=== PATIENT | female | born 1995 | race African-American/Black ===

== ENCOUNTER 2016-07-20 08:21 | Emergency (ER) | payer BC ==
[2016-07-20 08:34] VITALS: BP 144/74; PULSE 91; TEMP 98.1; BMI 43.5
[2016-07-20] MEDS ORDERED: ALBUTEROL SO4 2.5/IPRATROPIUM 0.5 INH SOL 3 ML VIAL.NEB. NEB ONE ×2 (09:11→09:12)
--- NOTE | 2016-07-20 09:15 | PDOC ---
History of Present Illness - General Chief Complaint: Cold Symptoms Stated Complaint: COLD SYMPTONS, LIGHTHEADED Time Seen by Provider: 07/20/16 08:59 History Source: Patient Past History - Past Medical History Allergies/Adverse Reactions: Allergies Allergy/AdvReac Type Severity Reaction Status Date / Time No Known Allergies Allergy Verified 07/20/16 08:31 Home Medications: Ambulatory Orders NK [No Known Home Medication] 07/20/16 Other medical history: denies - Immunization History Immunization Up to Date: Yes (no flu) - Psycho/Social/Smoking Cessation Hx Anxiety: No Suicidal Ideation: No Smoking Status: No Smoking History: Never smoked Have you smoked in the past 12 months: No Number of Cigarettes Smoked Daily: 0 Information on smoking cessation initiated: No Hx Alcohol Use: No Drug/Substance Use Hx: No *Physical Exam - Vital Signs Last Vital Signs Temp Pulse Resp BP Pulse Ox 98.1 F 91 H 20 144/74 97 07/20/16 08:32 07/20/16 08:32 07/20/16 08:32 07/20/16 08:32 07/20/16 08:32 Medical Decision Making - Medical Decision Making 07/20/16 10:26 better post 2 albuterol, will start pump at home; work note given *DC/Admit/Observation/Transfer Diagnosis at time of Disposition: Bronchitis with bronchospasm - Discharge Dispostion Disposition: HOME Condition at time of disposition: Stable Admit: No - Patient Instructions Additional Instructions: use albuterol x 3 days; see local MD 2-3 days if no better; rest at home - Post Discharge Activity Work/School Note: Back to Work
[2016-07-20] MEDS ORDERED: ALBUTEROL SO4 0.083% IH SOL 2.5 MG/3 ML VIAL.NEB. NEB ONE ×2 (09:40→09:42)
== END 2016-07-20 10:43 | disposition home or self-care (01) ==
LOC: JERFT 08:21
PROC: 3E0F7GC Introduction of Other Therapeutic Substance into Respiratory Tract, Via Natural or Artificial Opening (ICD-10-PCS; principal; 2016-07-20)
PROC: 3E0F7GC Introduction of Other Therapeutic Substance into Respiratory Tract, Via Natural or Artificial Opening (ICD-10-PCS; 2016-07-20)
DX: J20.9 Acute bronchitis, unspecified (principal)
CPT/HCPCS: 99281-25

== ENCOUNTER 2016-12-26 11:56 | Emergency (ER) | payer BC ==
[2016-12-26 12:01] VITALS: BP 146/70; PULSE 71; TEMP 98; BMI 42.8
[2016-12-26] MEDS ORDERED: diphenhydrAMINE HCL 25 MG CAPSULE (FP) PO ONE ×2 (12:27→12:29)
--- NOTE | 2016-12-26 12:58 | PDOC ---
History of Present Illness - General Chief Complaint: Allergic Reaction Stated Complaint: ALLERGIC REACTION Time Seen by Provider: 12/26/16 12:21 - History of Present Illness Initial Comments: 12/26/16 12:28 CHIEF COMPLAINT: bumps to R shoulder HISTORY OF PRESENT ILLNESS: 21 yo F presents to [facility] with bumps to right shoulder. Patient reports that she was sitting in [employer] when she felt these bumps come up and they were initially itchy but now do not feel as itchy. Patient states her mother was concerned it was an allergic reaction to food that she at at [employer]. FAMILY HISTORY: Denies SOCIAL HISTORY: Denies tobacco, alcohol, illicit drug use. SURGICAL HISTORY: Denies ALLERGIES: No known drug allergies REVIEW OF SYSTEMS General/Constitutional: Denies fever or chills. Denies weakness, weight change. HEENT: Denies change in vision. Denies ear pain or discharge. Denies sore throat. Skin: Bumps to right shoulder. PHYSICAL EXAM General Appearance: Well-appearing, appropriately dressed. No apparent distress. HEENT: EOMI, PERRLA. Neck: Supple. Trachea midline. No tenderness, rigidity, carotid bruit, stridor , lymphadenopathy, or thyromegaly. Respiratory/Chest: Lungs CTAB. Cardiovascular: RRR. S1, S2. Musculoskeletal/Extremities: Normal inspection. FROM of all extremities, normal capillary refill. Pelvis Stable. No CVA tenderness. No tenderness to extremities, pedal edema, swelling, erythema or deformity. Integumentary: Multiple erythematous nodules to R shoulder. Appropriate color, dry, warm. No cyanosis, erythema, jaundice or rash Neurologic: neonatologist II-XII intact. Fully oriented, alert. Appropriate mood/affect. Motor strength 5/5. No appreciable EOM palsy, facial droop or sensory deficit. 12/26/16 19:36 Past History - Past Medical History Allergies/Adverse Reactions: Allergies Allergy/AdvReac Type Severity Reaction Status Date / Time No Known Allergies Allergy Verified 12/26/16 11:57 Home Medications: Ambulatory Orders Diphenhydramine HCl [Benadryl -] 25 mg PO Q6H PRN #28 capsule 12/26/16 Hydrocortisone 0.5% Cream [Hytone 0.5% Cream -] 1 applic TP TID PRN #1 tube Asthma: Yes - Immunization History Immunization Up to Date: Yes (no flu) - Psycho/Social/Smoking Cessation Hx Anxiety: No Suicidal Ideation: No Smoking Status: No Smoking History: Never smoked Have you smoked in the past 12 months: No Number of Cigarettes Smoked Daily: 0 Information on smoking cessation initiated: No Hx Alcohol Use: No Drug/Substance Use Hx: No Substance Use Type: None *Physical Exam - Vital Signs Last Vital Signs Temp Pulse Resp BP Pulse Ox 98.0 F 71 18 146/70 100 12/26/16 11:59 12/26/16 11:59 12/26/16 11:59 12/26/16 11:59 12/26/16 11:59 Medical Decision Making - Medical Decision Making 12/26/16 12:58 21 yo F presents to fast track with bumps to right lower neck and shoulder. -Benadryl 12/26/16 12:58 *DC/Admit/Observation/Transfer Diagnosis at time of Disposition: Insect bite Qualifiers: Encounter type: initial encounter Qualified Code(s): W57.XXXA - Bitten or stung by nonvenomous insect and other nonvenomous arthropods, initial encounter - Discharge Dispostion Disposition: HOME Condition at time of disposition: Stable Admit: No - Prescriptions Prescriptions: Diphenhydramine HCl [Benadryl -] 25 mg PO Q6H PRN #28 capsule PRN Reason: itching Hydrocortisone 0.5% Cream [Hytone 0.5% Cream -] 1 applic TP TID PRN #1 tube PRN Reason: itching - Referrals Referrals: Ramu Berrios MD, MD [Primary Care Provider] - Michelle Sawyer MD [Staff Physician] - - Patient Instructions Printed Discharge Instructions: DI for Insect Bites and Stings Additional Instructions: Please take medication as prescribed. Follow up with dermatology if rash persists past 3-4 days or worsens. If you experience any swelling of your neck , throat, tongue, mouth, lips, or develop any difficulty breathing, speaking, or swallowing, please return to the ER immediately.
== END 2016-12-26 13:16 | disposition home or self-care (01) ==
LOC: JERFT 11:56
DX: S40.261A Insect bite (nonvenomous) of right shoulder, initial encounter (principal); S10.86XA Insect bite of other specified part of neck, initial encounter; W57.XXXA Bitten or stung by nonvenomous insect and other nonvenomous arthropods, initial encounter; Y93.89 Activity, other specified; Y92.22 Religious institution as the place of occurrence of the external cause
CPT/HCPCS: 99281-25

== ENCOUNTER 2018-08-22 02:45 | Emergency (ER) | payer BC ==
[2018-08-22 03:00] VITALS: BP 151/73; PULSE 84; TEMP 98.3; BMI 43.7
--- NOTE | 2018-08-22 03:15 | PDOC ---
Attending Attestation - Resident Resident Name: Joselyn Walker - ED Attending Attestation I have performed the following: I have examined & evaluated the patient, The case was reviewed & discussed with the resident, I agree w/resident's findings & plan - HPI HPI: 08/22/18 04:42 23-year-old female with vaginal bleeding between periods and heavier bleeding than normal.. She denies nausea vomiting fever or urinary symptoms. - Physicial Exam PE: 08/22/18 04:42 Agree with resident's exam - Medical Decision Making 08/22/18 04:42 23-year-old female with vaginal bleeding is negative Patient is stable otherwise She already has a follow-up appointment with her OUTSIDE LABORER in the [place] and has been advised to return should she develop lightheadedness or severe weakness as these could be signs of acute anemia.
--- NOTE | 2018-08-22 03:46 | PDOC ---
History of Present Illness - General Chief Complaint: Vaginal Bleeding Stated Complaint: VAGINAL BLEEDING Time Seen by Provider: 08/22/18 03:02 History Source: Patient Exam Limitations: No Limitations - History of Present Illness Initial Comments: 08/22/18 03:40 23 yr old overweight woman A0 with asthma presents with heavy vaginal bleeding since tuesday requiring several large sanitary pads every 2-3 hours with intermittent painful uterine cramping, 3/10 nonradiating intensity lasting a few mins at a time. a/w dizziness when standing from a sitting position and feeling cold. bleeding is red intermixed with clots. She has been having intermittent spotting since april which progressed to heavier vaginal bleeding for most the last 30 days, started off with light sanitary pads now using heavier pads. had a pap smear last year with Dr. Phan, terence/pierre test was negative, sexually active with one male partner. not on birthcontrol. was at [facility] ED earlier today, said she was given the strip of her u- preg test in a bag without written results but it was covered in blood and she is not sure if she saw more than one line. she took an at home u-preg test in jun/Jul and it was negative. denies syncope, lightheadedness, chest pain, palpitations, dysuria menarche age 9 or 10, periods have not been in exact intervals since initiating , but comes approx on the 14-15th of every month, lasting 6days with tapering of the flow towards the end, she would have 2-3days of dark spotting between periods recalls having an ultrasound of her uterus many years ago, does not recall the circumstances under which it was done, but doesn't remember being told anything was abnormal when donating blood has been told she was anemic Pmhx: well-controlled asthma Surghx:tonsilectomy as a child Sochx: denies smoking, drug use, occasional soc etoh use. works in recruitment. allergies: NKDA Fmhx: HTN in both parents and both grandmothers. DMII in father and both grandmothers. denies fmhx of DUB, gynecological cancers or fibriods. Past History - Travel Traveled outside of the country in the last 30 days: No Close contact w/someone who was outside of country & ill: No - Past Medical History Allergies/Adverse Reactions: Allergies Allergy/AdvReac Type Severity Reaction Status Date / Time No Known Allergies Allergy Verified 08/22/18 02:59 Home Medications: Ambulatory Orders Multivitamin/Iron/Folic Acid [Centrum Women Tablet] 1 each PO DAILY 08/22/18 Asthma: Yes COPD: No - Immunization History Immunization Up to Date: Yes (no flu) - Suicide/Smoking/Psychosocial Hx Smoking Status: No Smoking History: Never smoked Have you smoked in the past 12 months: No Number of Cigarettes Smoked Daily: 0 Hx Alcohol Use: No Drug/Substance Use Hx: No Substance Use Type: None Review of Systems - Review of Systems Constitutional: No: Fever, Night Sweats, Weakness, Unintentional Wgt. Loss HEENTM: No: Blurred Vision, Double Vision, Nose Bleeding, Hearing Loss, Difficulty Swallowing Respiratory: No: Shortness of Breath, SOB with Exertion, Productive cough, Hemoptysis Cardiac (ROS): No: Chest Pain, Edema, Lightheadedness, Palpitations, Syncope ABD/GI: Yes: Abdominal cramping. No: Abdominal Distended, Diarrhea, Difficulty Swallowing, Poor Appetite, Rectal Bleeding, Vomiting : No: Burning, Dysuria, Discharge, Frequency, Flank Pain, Hematuria Musculoskeletal: No: Back Pain, Joint Swelling, Muscle Pain, Joint Stiffness Integumentary: No: Bruising, Erythema, Rash Neurological: Yes: Dizziness. No: Headache, Paresthesia, Tingling, Tremors, Unsteady Gait, Ataxia Psychiatric: No: Mood Swings Endocrine: Yes: Intolerance to Cold. No: Intolerance to Heat, Increased Hunger , Increased Thirst, Increased Urine Hematologic/Lymphatic: No: Anemia, Blood Clots, Easy Bleeding, Bleeding Diathesis *Physical Exam - Vital Signs Last Vital Signs Temp Pulse Resp BP Pulse Ox 98.3 F 84 18 151/73 100 08/22/18 02:49 08/22/18 02:49 08/22/18 02:49 08/22/18 02:49 08/22/18 02:49 - Physical Exam General Appearance: Yes: Appropriately Dressed HEENT: positive: EOMI, GLADIS, Pharynx Normal, Hearing Grossly Normal. negative: Photophobia, Tonsillar Exudate, Rhinorrhea Respiratory/Chest: positive: Lungs Clear, Normal Breath Sounds. negative: Crackles, Rhonchi, Wheezing Cardiovascular: positive: Regular Rhythm, Regular Rate. negative: Murmur Female Pelvic Exam: positive: normal external exam, cervical os closed, vaginal bleeding (dark blood and clots) Gastrointestinal/Abdominal: positive: Other (obese) Musculoskeletal: negative: CVA Tenderness, Vertebral Tenderness Extremity: positive: Normal Capillary Refill, Normal Inspection. negative: Cyanosis, Swelling, Calf Tenderness, Erythema Integumentary: positive: Normal Color, Dry, Warm. negative: Clammy, Petechiae, Rash, Ecchymosis Neurologic: positive: Fully Oriented, Alert Moderate Sedation - Procedure Monitoring Vital Signs: Procedure Monitoring Vital Signs Temperature 98.3 F 08/22/18 02:49 Pulse Rate 84 08/22/18 02:49 Respiratory Rate 18 08/22/18 02:49 Blood Pressure 151/73 08/22/18 02:49 O2 Sat by Pulse Oximetry (%) 100 08/22/18 02:49 ED Treatment Course - LABORATORY CBC & Chemistry Diagram: 08/22/18 03:42 08/22/18 03:42 Medical Decision Making - Medical Decision Making 08/22/18 04:36 23 yr old with menorrhagia, without anemia or lab abnormalities. recommend to f/ u with PCP and station engineer. 08/22/18 04:48 reviewed results of lab work with patient, she is comfortable to further complaints and is in agreement with plan to f/u with PCP and station engineer. answered questions to her satisfaction. *DC/Admit/Observation/Transfer Diagnosis at time of Disposition: Menorrhagia - Discharge Dispostion Disposition: HOME Condition at time of disposition: Stable Decision to Admit order: No - Referrals Referrals: Spike Berrios MD [Primary Care Provider] - Maribell Phan DO [Staff Physician] - [facility] [place] Group] - Patient Instructions Printed Discharge Instructions: DI for Vaginal Bleeding Additional Instructions: You were evaluated today for vaginal bleeding, copy of your blood work has been provided to you. Please follow-up with your primary care physician(Dr. Berrios) and your station engineer(Dr. Phan) for post-hospital evaluation. If you develop fevers, chest pain, trouble breathing, worsening abdominal cramping or any other new symptoms please return to the hospital. A work note has been provided for you. Print Language: MOHAWK - Post Discharge Activity Forms/Work/School Notes: Back to Work
[2018-08-22 03:58] LABS: EOS % 3.9 % (0-4.5); HEMATOCRIT 34.4 % (32.4-45.2); HEMOGLOBIN 11.5 GM/dL (10.7-15.3); LYMPH % 31.4 % (8-40); MCH 27.1 pg (25.7-33.7); MCHC 33.5 g/dl (32.0-36.0); MEAN CELL VOLUME 80.8 fl (80-96); MEAN PLT VOLUME 7.1 fl (7.5-11.1); MONO % 11.9 % (3.8-10.2); NEUT % 51.8 % (42.8-82.8); PLATELET COUNT 326 K/MM3 (134-434); RBC 4.26 M/mm3 (3.60-5.2); WHITE BLOOD COUNT 8.8 K/mm3 (4.0-10.0)
[2018-08-22 04:10] LABS: INR 1.08 (0.83-1.09); PROTHROMBIN TIME (PATIENT) 12.7 SEC (9.7-13.0)
[2018-08-22 04:13] LABS: ACTIVATED PTT 31.4 SECONDS (25.2-36.5)
[2018-08-22 04:21] LABS: ANION GAP 6 MMOL/L (8-16); BLOOD UREA NITROGEN 16 mg/dL (7-18); CALCIUM 8.2 mg/dL (8.5-10.1); CHLORIDE 107 mmol/L (98-107); CO2 28 mmol/L (21-32); GLUCOSE,RANDOM 105 mg/dL (74-106); POTASSIUM 4.1 mmol/L (3.5-5.1); SODIUM 141 mmol/L (136-145)
== END 2018-08-22 04:53 | disposition home or self-care (01) ==
LOC: JER 02:45
DX: N92.0 Excessive and frequent menstruation with regular cycle (principal); E66.9 Obesity, unspecified; Z68.41 Body mass index [BMI] 40.0-44.9, adult
CPT/HCPCS: 36415; 80048; 84702; 85025; 85610; 85730; 86850; 86900; 86901; 99283-25